=== PATIENT | male | born 1990 | race Caucasian/White ===

== ENCOUNTER 2022-03-07 15:20 | Outpatient (CLI) | payer BC, SELFPAY ==
[2022-03-07 15:35] LABS: Hematocrit 44.6 % (40.0-54.0); Hemoglobin 14.9 g/dL (14.0-18.0); Mean Corpuscular HGB Conc 33.4 g/dL (32.0-36.0); Mean Corpuscular Hemoglobin 29.8 pg (27.0-31.0); Mean Corpuscular Volume 89.2 fL (78.0-102.0); Mean Platelet Volume 10.4 fl (8.7-11.0); Platelet Count Result 224 K/mm3 (150-420); Red Cell Distribution Width 12.5 % (11.6-14.4); White Blood Count 7.7 K/mm3 (4.8-10.8)
[2022-03-07 15:55] LABS: Alanine Aminotransferase 46 U/L (16-63); Alkaline Phosphatase 62 U/L (46-116); Anion Gap 9 mmol/L (8-16); Aspartate Amino Transferase 29 U/L (15-37); Bilirubin,Total 0.6 mg/dL (0.00-1.00); Blood Urea Nitrogen 16 mg/dL (7-18); Calcium 9.8 mg/dL (8.5-10.1); Carbon Dioxide 29 mmol/L (21-32); Chloride 101 mmol/L (98-108); Cholesterol 138 mg/dL (0-200); Estimated Glomerular Filt Rate > 60; Glucose 95 mg/dL (70-99); HDL Direct 67 mg/dL (40-60); LDL Cholesterol Calculated 59 mg/dL (<130); Osmolality Calculated 289 mOsm/kg (285-295); Potassium 4.2 mmol/L (3.5-5.1); Sodium 139 mmol/L (136-145); Total Protein 8.2 g/dL (6.4-8.2); Triglycerides 58 mg/dL (0-150)
[2022-03-07 16:23] LABS: Thyroid Stimulating Hormone Reflex 1.45 u/IU/mL (0.36-3.74)
== END 2022-03-07 15:21 | disposition home or self-care (01) ==
PROVIDERS: PCP Family Medicine; Visit Provider Family Medicine
DX: E11.9 Type 2 diabetes mellitus without complications (principal); I10 Essential (primary) hypertension
CPT/HCPCS: 36415; 80053; 80061; 84443; 85027

== ENCOUNTER 2022-04-04 01:41 | Day surgery (SDC) | payer BC, SELFPAY ==
[2022-03-26 14:07] VITALS: BMI 29.9
--- NOTE | 2022-04-03 14:55 | P.PNAN_ITS ---
Anes - Initial Pre Proc Eval Procedure: Operation Date: 04/04/22 08:30 Proposed Procedures p Screening Colonoscopy - Ethan Prescott DO Date/Time: 04/03/22 14:55 Surgeon: Ethan Prescott DO Pre Op Diagnosis: Family history of colon cancer Patient Data Age: 31 Gender: M Height: 2.01 m Weight: 120.5 kg Allergies Allergy/AdvReac Type Severity Reaction Status Date / Time No Known Allergies Allergy Mild Verified 03/21/22 07:15 Home Medications Medication Instructions Recorded Confirmed Type lisinopril 20 mg tablet 20 mg PO DAILY #90 tabs 03/07/22 03/26/22 Rx cyclobenzaprine 10 mg tablet 10 mg PO TID PRN muscle spasm #30 03/21/22 03/26/22 Rx tabs meloxicam 15 mg tablet 15 mg PO DAILY PRN pain #90 tabs 03/21/22 03/26/22 Rx Patient hx anesthesia problems: none Family hx anesthesia problems: none Results Review: All pre-operative results and documents have been reviewed as part of the pre- operative evaluation. [facility] Past Medical History Medical History (Updated 04/03/22 @ 14:55 by Kingsley Cage MD) Family history of colon cancer in mother Hypertension Tobacco abuse Surgical History Surgical History No history of previous surgery Social History Social History (Updated 03/21/22 @ 10:17 by Zayra Guerra) Smoking status: Current every day smoker Tobacco type: cigarettes Alcohol intake: current Alcohol use details: SOCIALLY Substance use: former Substance use type: marijuana Lack of Transportation: No Lack of Food: Never True Current Housing: I Have Housing Concerned About Future Housing: No Difficulty Paying Gas/Electric Bills: No Difficulty Paying for Meds: No Currently Unemployed: No Education: Trade/Vocational Certificate Living arrangements: with family Spiritual care concerns: No Anes - Eval Final PreProcedure Day of Procedure 04/03/22 14:55 Patient weight: overweight Heart: regular rate and rhythm Lungs: clear to auscultation and normal air movement Airway: Mallampati scale class II Neurological: alert and oriented Last oral intake: >/= 8 hours ASA classification: II Emergent: no Anesthetic plan: proceed Anesthesia type and monitoring: general GIVS Results Review: All pre-operative results and documents have been reviewed as part of the pre- operative evaluation. Informed Consent: The patient's anesthetic plan and its attendant risks and benefits were dis cussed with the patient/family/POA. Questions were solicited and answers provided to the satisfaction of the patient/family/POA.
[2022-04-04 07:49] VITALS: BP 123/76; PULSE 70; RESP 18; TEMP 36.1; O2SAT 100; BMI 28.4
[2022-04-04] MEDS: LACTATED RINGERS 1,000 ML 150 ML IV CONT (08:01)
--- NOTE | 2022-04-04 08:37 | PM.IMHP ---
H&P: HPI History of Present Illness Date/Time: 04/04/22 08:37 Chief Complaint: Family history of colon cancer Narrative: this is a 31-year-old man who presents for colonoscopy. He has never had a colonoscopy before. His mother had colon cancer in her late 30s. He does not know of any other family history of colon cancer. He denies any hematochezia or melena. Review of Systems Review of Systems: All systems reviewed & are unremarkable except as noted in HPI and below Constitutional: Constitutional: Denies chills, Denies fever(s), Denies headache(s) and Denies weight loss Eyes: Eyes: Denies change in vision ENT: Denies dizziness, Denies headache(s), Denies neck mass and Denies throat swelling Cardiovascular: Cardiovascular: Denies chest pain, Denies lightheadedness and Denies dyspnea Respiratory: Respiratory: Denies cough, Denies dyspnea and Denies wheezing Gastrointestinal: Gastrointestinal: Denies abdominal pain, Denies change in bowel habits, Denies nausea and Denies vomiting Genitourinary: Genitourinary: Denies hematuria and Denies dysuria Musculoskeletal: Musculoskeletal: Reports as per HPI Integumentary/Breasts: Skin/Breast: Reports as per HPI Neurologic: Denies dizziness and Denies headache(s) Allergic/Immunologic: Allergic/Immunologic: Denies throat swelling and Denies wheezing [facility] Past Medical History Medical History (Updated 04/03/22 @ 14:55 by Kingsley Cage MD) Family history of colon cancer in mother Hypertension Tobacco abuse Surgical History Surgical History No history of previous surgery Social History Social History (Updated 03/21/22 @ 10:17 by Zayra Guerra) Smoking status: Current every day smoker Tobacco type: cigarettes Alcohol intake: current Alcohol use details: SOCIALLY Substance use: former Substance use type: marijuana Lack of Transportation: No Lack of Food: Never True Current Housing: I Have Housing Concerned About Future Housing: No Difficulty Paying Gas/Electric Bills: No Difficulty Paying for Meds: No Currently Unemployed: No Education: Trade/Vocational Certificate Living arrangements: with family Spiritual care concerns: No Meds Home Medications and Allergies Home Medications Medication Instructions Recorded Confirmed Type lisinopril 20 mg tablet 20 mg PO DAILY #90 tabs 03/07/22 03/26/22 Rx cyclobenzaprine 10 mg tablet 10 mg PO TID PRN muscle spasm #30 03/21/22 03/26/22 Rx tabs meloxicam 15 mg tablet 15 mg PO DAILY PRN pain #90 tabs 03/21/22 03/26/22 Rx Allergies Allergy/AdvReac Type Severity Reaction Status Date / Time No Known Allergies Allergy Mild Verified 03/21/22 07:15 Vital Signs Vital Signs - 24 hr 04/04/22 07:49 Temperature 36.1 C L Pulse Rate 70 Respiratory Rate 18 Blood Pressure 123/76 Pulse Oximetry 100 Oxygen Delivery Room Air Exam Const: General: no acute distress and alert Orientation/consciousness: patient oriented x3 HENMT: Head: normocephalic and atraumatic Ears: hearing grossly normal bilaterally Face/Nose/Sinus: Normal nares present Mouth: Yes Normal oral and palatal mucosa present Eyes: Periorbital: periorbital findings normal Sclera: sclerae normal EOM: EOMs intact bilaterally Neck: Neck: normal visual inspection, no lymphadenopathy and trachea midline Chest: Chest palpation & inspection: normal inspection of the chest Resp: Effort & Inspection: normal respiratory effort Auscultation: clear to auscultation bilaterally Cardio: Jugular venous distension: no JVD Rate: regular rate Rhythm: regular rhythm Heart sounds: S1 normal heart sound present and S2 normal heart sound present Peripheral pulses: Peripheral pulses 2+ throughout GI: Inspection: normal to inspection GI Palp: Yes Soft to palpation, No Tenderness to palpation present (GI), No Guarding due to palpation present (GI) and No Rebound te
[2022-04-04 09:05] VITALS: BP 82/44; PULSE 52; RESP 19; O2SAT 100
[2022-04-04 09:15] VITALS: BP 84/44; PULSE 51; RESP 20; O2SAT 100
[2022-04-04 09:25] VITALS: BP 83/44; PULSE 54; RESP 18; O2SAT 100
[2022-04-04 09:35] VITALS: BP 86/52; PULSE 64; RESP 19; O2SAT 100
[2022-04-04 09:45] VITALS: BP 103/65; PULSE 66; RESP 17; O2SAT 100
== END 2022-04-04 09:51 | disposition home or self-care (01) ==
PROVIDERS: PCP Family Medicine; Visit Provider Surgery
PROC: 0DJD8ZZ Inspection of Lower Intestinal Tract, Via Natural or Artificial Opening Endoscopic (ICD-10-PCS; CPT 45378; principal; 2022-04-04 08:30)
DX: Z12.11 Encounter for screening for malignant neoplasm of colon (principal); Z80.0 Family history of malignant neoplasm of digestive organs; I10 Essential (primary) hypertension; F17.210 Nicotine dependence, cigarettes, uncomplicated
CPT/HCPCS: 45378; J2704; J7120

== ENCOUNTER 2024-12-04 08:57 | Outpatient (CLI) | payer BC, SELFPAY ==
--- OUTSIDE RECORDS SUMMARY | 2024-12-04 09:00 | XMS_ITS | Clinical Summary ---
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 Name Role Phone Unavailable Primary Care Provider Unavailabl e Social History Tobacco Use Types Packs/Day Years Used Date Smoking Tobacco: Never Assessed Sex and Gender Information Value Date Recorded Sex Assigned at Not on file Legal Sex Male 8:31 PM CDT Gender Identity Not on file Sexual Orientation Not on file Plan of Treatment Health Maintenance Due Date Last Done Comments Annual Physical 08/19/1991 Hepatitis C 2006 DTaP, Tdap and Td Vaccines ( 1 - Tdap) 08/19/2007 Hepatitis B Vaccines (1 of 3 - 19+ 3-dose series) 08/19/2007 COVID-19 Vaccine ( - 2023-2 5 season) 2024 HPV Vaccines Aged Out No longer eligi ble based on patient's age to complete this topic Meningococcal B Vaccine Aged Out No l onger eligible based on patient's age to complete this topic Meningococcal Vaccine Aged Out No herman neptali eligible based on patient's age to complete this topic Pneumococcal Vaccine: Pediat rics (0 to 5 Years) and At-Risk Patients (6 to 49 Years) Aged Out No longer eligible b ased on patient's age to complete this topic RSV Immunizations Under 20 Months Aged Out No longer eligible based on patient's age to complete this topic
[2024-12-04 09:11] LABS: Hematocrit 41.8 % (40.0-54.0); Hemoglobin 14.1 g/dL (14.0-18.0); Immature Granulocyte Percent A 0.4 % (0.0-0.0); Lymphocytes Absolute Auto 2.36 K/mm3 (1.10-4.50); Mean Corpuscular HGB Conc 33.7 g/dL (32-36); Mean Corpuscular Hemoglobin 29.7 pg (27.0-31.0); Mean Corpuscular Volume 88.2 fL (78.0-102.0); Nucleated Red Blood Cells Absolute Auto 0.00 K/mm3 (0.00-0.00); Nucleated Red Blood Cells Perc 0.0 % (0-0.0); Platelet Count Result 218 K/mm3 (150-420); Red Blood Count 4.74 M/mm3 (4.70-6.10); White Blood Count 7.2 K/mm3 (4.8-10.8)
[2024-12-04 09:49] LABS: Alanine Aminotransferase 61 U/L (6-50); Albumin Level 4.4 g/dL (3.5-5.1); Alkaline Phosphatase 64 U/L (38-126); Anion Gap 4 mmol/L (4-12); Aspartate Amino Transferase 38 U/L (17-59); Bilirubin,Total 0.8 mg/dL (0.2-1.3); Blood Urea Nitrogen 12 mg/dL (9-20); Calcium 9.0 mg/dL (8.4-10.2); Carbon Dioxide 27 mmol/L (22-30); Chloride 108 mmol/L (98-107); Estimated Glomerular Filt Rate > 60; Glucose 102 mg/dL (65-110); Osmolality Calculated 287 mOsm/kg (285-295); Potassium 4.4 mmol/L (3.4-5.0); Sodium 139 mmol/L (137-145); Total Protein 7.1 g/dL (6.3-8.2)
== END 2024-12-04 08:58 | disposition home or self-care (01) ==
LOC: CHSLAB 08:59
PROVIDERS: PCP Family Medicine; Visit Provider Family Medicine
DX: I10 Essential (primary) hypertension (principal)
CPT/HCPCS: 36415; 80053; 85025